=== PATIENT | female | born 1995 | race Two or more races ===

== ENCOUNTER 2024-01-25 01:44 | Emergency (ER) | payer OTHER ==
[~2024-01-25] VITALS: Ht 160 cm; Wt 59.0 kg
[2024-01-25] MEDS ORDERED: PROZAC10 M1 PO (02:01)
[2024-01-25] MEDS ORDERED: TETANUS & DIPHTHERIA TOX,ADULT 0.5 ML VIAL IM STA (02:39)
[2024-01-25] MEDS ORDERED: CEFAZOLIN SODIUM 1,000 MG VIAL IM STA (02:40)
== END 2024-01-25 03:34 | disposition home or self-care (01) ==
LOC: ER 01:46
DX: S61.021A Laceration with foreign body of right thumb without damage to nail, initial encounter (principal); W26.0XXA Contact with knife, initial encounter; Y93.G1 Activity, food preparation and clean up; Y92.010 Kitchen of single-family (private) house as the place of occurrence of the external cause; Z88.8 Allergy status to other drugs, medicaments and biological substances